=== PATIENT | female | born 1985 | race Caucasian/White ===

== ENCOUNTER 2018-03-25 07:52 | Emergency (ER) | payer MEDICAID, OTHER ==
[2018-03-25 08:14] VITALS: BMI 308.7
[2018-03-25] MEDS ORDERED: Betamethasone Soluspan 30 mg/5mL Inj Susp IM STA (09:32)
[2018-03-25 10:44] LABS: HEMOGLOBIN 11.7 g/dL (11.0-16.0); MEAN CELL VOLUME 68.5 fL (81.0-99.0); MEAN CORPUSCULAR HEMOGLOBIN 22.3 pg (27.0-31.0); MEAN CORPUSCULAR HGB CONC 32.5 g/dL (33.0-37.0); MEAN PLATELET VOLUME 10.7 fL (7.2-11.7); RBC 5.25 Mil/uL (3.80-5.20); RED CELL DISTRIBUTION WIDTH 15.7 % (11.5-14.5)
[2018-03-25 14:50] VITALS: BP 124/85; PULSE 80
== END 2018-03-25 10:05 | disposition short-term general hospital (02) ==
LOC: C.EROB 07:52
DX: O47.03 False labor before 37 completed weeks of gestation, third trimester (principal); Z3A.34 34 weeks gestation of pregnancy
CPT/HCPCS: 85027; 96372; 99283; J0702